=== PATIENT | male | born 1945 | race Caucasian/White ===

== ENCOUNTER → 2017-07-03 | Outpatient (CLI) | payer MEDICARE, OTHER ==
[~2017-07-03] MED LIST: LIPITOR40 MG PO; NORCO 5-325 TA1 EACH PO; PLAVIX75 MG PO; XARELTO15 MG PO
[2017-07-03 16:55] LABS: BASOPHIL # 0.1 K/uL (0.0-0.2); BASOPHIL % 0.7 %; EOSINOPHIL # 0.1 K/uL (0.0-0.5); EOSINOPHIL % 1.2 %; HEMATOCRIT 50.6 % (37.0-53.0); HEMOGLOBIN 17.6 g/dL (11.0-16.0); IMMATURE GRANULOCYTE # 0.1 K/uL (0.0-0.3); IMMATURE GRANULOCYTE % 0.8 %; LYMPHOCYTE # 1.8 K/uL (0.8-4.0); LYMPHOCYTE % 19.2 %; MCH 31.4 pg (27.0-34.0); MCHC 34.8 gm/dL (32.0-36.5); MCV 90.2 fl (83.0-98.0); MPV 10.6 fl (9.4-12.4); NEUTROPHIL # (ANC) 6.2 K/uL (1.4-9.0); NEUTROPHIL % 67.1 %; NRBC % 0 /100WBC (0-0.00); PLATELET COUNT 230 K/uL (150-450); RDW-CV 15.2 % (11.9-14.6); WBC 9.2 K/uL (4.0-11.0)
[2017-07-03 16:56] LABS: RBC 5.61 M/uL (3.50-5.50)
[2017-07-03 17:07] LABS: ALBUMIN 3.9 gm/dL (3.5-5.0); ANION GAP 11.7 (10.0-19.0); CALCIUM 8.9 mg/dL (8.5-10.5); CREATININE 0.9 mg/dL (0.6-1.3); POTASSIUM 3.7 mMol/L (3.7-5.1); TOTAL BILIRUBIN 1.6 mg/dL (0.0-1.5); TOTAL PROTEIN 7.7 g/dL (6.0-8.4)
== END ==
LOC: LNHI 16:48
PROVIDERS: Surgery Vascular Surgery
DX: Z01.818 Encounter for other preprocedural examination (principal); I73.9 Peripheral vascular disease, unspecified

== ENCOUNTER → 2017-07-10 | Outpatient (CLI) | payer MEDICARE, OTHER | END | disposition disaster alternative care site (69) | LOC: GRAD 14:00 | DX: I73.9 Peripheral vascular disease, unspecified (principal); I77.1 Stricture of artery; I70.0 Atherosclerosis of aorta; I74.09 Other arterial embolism and thrombosis of abdominal aorta; Z95.820 Peripheral vascular angioplasty status with implants and grafts | CPT/HCPCS: Q9967 ==